=== PATIENT | male | born 1965 | race Caucasian/White ===

== ENCOUNTER 2019-11-21 09:42 | Emergency (ER) | payer BC ==
[2019-11-21] MEDS ORDERED: ONDANSETRON 4 MG (ODT) TAB ONE (10:13)
[2019-11-21] MEDS ORDERED: MORPHINE 4 MG/ML SYR ONE (10:13)
--- NOTE | 2019-11-21 10:39 | RAD REPORT ---
EXAM DESCRIPTION: RAD - Ankle Left 3 View -11/21/2019 10:25 am CLINICAL HISTORY: Left ankle pain FINDINGS: No fracture or dislocation is seen. Mild to moderate osteoarthritis involves the ankle mainly consisting of joint space narrowing and ost eophytes Vascular calcifications
--- NOTE | 2019-11-21 10:43 | RAD REPORT ---
EXAM DESCRIPTION: RAD - Foot Left 3 View - 11/21/2019 10:25 am CLINICAL HISTORY: Left Foot pain FINDINGS: No fracture or dislocation is seen. Large calcaneal spur
--- NOTE | 2019-11-21 11:10 | ER ---
Nurse's Notes [facility] Name: Cristóbal Reeves Age: 54 yrs Sex: Male : 1965 Arrival Date: 11/21/2019 Time: 09:44 Bed 5 Private MD: Ike Baez Diagnosis: Sprain of ankle Presentation: 11/21 09:52 Presenting complaint: Patient states: LEFT ANKLE PAIN AFTER FALL 11/03. Transition of bp care: patient was not received from another setting of care. Onset of symptoms was November 03, 2019. Risk Assessment: Do you want to hurt yourself or someone else? Patient reports no desire to harm self or others. Initial Sepsis Screen: Does the patient meet any 2 criteria? No. Patient's initial sepsis screen is negative. Does the patient have a suspected source of infection? No. Patient's initial sepsis screen is negative. Care prior to arrival: None. 09:52 Method Of Arrival: Wheelchair bp 09:52 Acuity: NELIDA 3 bp Triage Assessment: 09:54 General: Appears in no apparent distress. comfortable, Behavior is calm, cooperative, bp appropriate for age. Pain: Complains of pain in left medial ankle. EENT: No deficits noted. Neuro: No deficits noted. Cardiovascular: No deficits noted. Respiratory: No deficits noted. GI: No deficits noted. : No deficits noted. Derm: No deficits noted. Musculoskeletal: Swelling present in left medial ankle. Historical: - Allergies: 09:54 No Known Allergies; bp - Home Meds: 09:54 lisinopril 20 mg oral tab [Active]; simvastatin 20 mg oral tab [Active]; bp - PMHx: 09:54 High Cholesterol; Hypertension; Diabetes - NIDDM; Gout; bp - Immunization history:: Adult Immunizations up to date. - Social history:: Smoking status: Patient/guardian denies using tobacco. - Ebola Screening: : No symptoms or risks identified at this time. Screenin:54 Abuse screen: Denies threats or abuse. Denies injuries from another. Nutritional bp screening: No deficits noted. Tuberculosis screening: No symptoms or risk factors identified. Fall Risk None identified. Assessment: 09:54 General: SEE TRIAGE NOTE. bp 10:12 Reassessment: XRAY AT B/S. bp 11:19 Reassessment: PT D/C HOME VIA W/C WITH FAMILY, DX WITH ANKLE SPRAIN. bp Vital Signs: 09:54 BP 124 / 68; Pulse 80; Resp 16; Temp 98.2; Pulse Ox 98% ; Weight 104.33 kg; Height 5 bp ft. 11 in. (180.34 cm); 11:19 BP 115 / 49; Pulse 65; Resp 16; Temp 98; Pulse Ox 97% ; bp 09:54 Body Mass Index 32.08 (104.33 kg, 180.34 cm) bp ED Course: 09:44 Patient arrived in ED. as 09:44 Ike Baez MD is Private Physician. as 09:45 Jin Landin, RN is Primary Nurse. bp 09:53 Stanley Milligan PA is [facility] 09:53 Ismael Ballard MD is Attending Physician. jm 09:53 Triage completed. bp 09:54 Arm band placed on. bp 09:54 Patient has correct armband on for positive identification. Bed in low position. Call bp light in reach. Side rails up X2. Adult w/ patient. 10:26 Ankle Left 3 View XRAY In Process Unspecified. EDMS 10:26 Foot Left 3 View XRAY In Process Unspecified. EDMS 11:09 Yao Silva MD is Referral Physician. [facility] 11:19 No provider procedures requiring assistance completed. Patient did not have IV access bp during this emergency room visit. Casper wrap to left medial ankle. Administered Medications: 10:17 Drug: morphine 4 mg Route: IM; Site: right deltoid; sg 10:49 Follow up: Response: No adverse reaction; Pain is decreased sg 10:17 Drug: Zofran 4 mg Route: PO; sg 10:49 Follow up: Response: No adverse reaction sg Outcome: 11:09 Discharge ordered by . jmm 11:19 Discharged to home via wheelchair, with family. bp 11:19 Condition: stable 11:19 Discharge instructions given to patient, Instructed on discharge instructions, follow up and referral plans. medication usage, Demonstrated understanding of instructions, follow-up care, medications, Prescriptions given X 1. 11:21 Patient left the ED. bp Signatures: Dispatcher [employer] EDMS Francois Gatica RN RN sg Stanley Milligan PA PA Kerri Gifford as Jin Landin, RN RN bp
--- NOTE | 2019-11-21 11:11 | EDPHYS ---
Physician Documentation [facility] Name: Cristóbal Reeves Age: 54 yrs Sex: Male : 1965 Arrival Date: 11/21/2019 Time: 09:44 Bed 5 Private MD: Ike Baez ED Physician Ismael Ballard HPI: 11/21 09:57 This 54 yrs old Male presents to ER via Wheelchair with complaints of Ankle jmm Pain. 09:57 The patient presents with an injury, pain. Onset: The symptoms/episode began/occurred jmm acutely, 11/03/2019. Associated signs and symptoms: Pertinent positives: swelling. Modifying factors: The symptoms are alleviated by nothing, the symptoms are aggravated by movement. This is a 54 year old male with a history of hlp, htn, dm, gout, that presents to the ED with complaints of left ankle pain beginning after falling off a ladder on the 9th of this month. Patient initially had bruising after the injury. Patient now complains of throbbing pain to the ankle. Patient admits to recent ETOH use. Denies fever or chills. . Historical: - Allergies: 09:54 No Known Allergies; bp - Home Meds: 09:54 lisinopril 20 mg oral tab [Active]; simvastatin 20 mg oral tab [Active]; bp - PMHx: 09:54 High Cholesterol; Hypertension; Diabetes - NIDDM; Gout; bp - Immunization history:: Adult Immunizations up to date. - Social history:: Smoking status: Patient/guardian denies using tobacco. - Ebola Screening: : No symptoms or risks identified at this time. ROS: 09:57 Constitutional: Negative for fever, chills, and weight loss, Cardiovascular: Negative jmm for chest pain, palpitations, and edema, Respiratory: Negative for shortness of breath, cough, wheezing, and pleuritic chest pain. 09:57 MS/extremity: Positive for injury or acute deformity, pain. 09:57 All other systems are negative. Exam: 09:57 Constitutional: This is a well developed, well nourished patient who is awake, alert, jmm and in no acute distress. Head/Face: atraumatic. Eyes: EOMI, no conjunctival erythema appreciated ENT: Moist Mucus Membranes Neck: Trachea midline, Supple Chest/axilla: Normal chest wall appearance and motion. Cardiovascular: Regular rate and rhythm. No edema appreciated Respiratory: Normal respirations, no respiratory distress appreciated Abdomen/GI: Non distended, soft 09:57 Musculoskeletal/extremity: the left lateral ankle is TTP, full dorsalis pulse, appreciated, compartments are soft, NVI. 09:57 Skin: Appearance: Color: normal in color. 09:57 Neuro: Orientation: is normal, Mentation: is normal, Memory: is normal. 09:57 Psych: Behavior/mood is pleasant, cooperative. Vital Signs: 09:54 BP 124 / 68; Pulse 80; Resp 16; Temp 98.2; Pulse Ox 98% ; Weight 104.33 kg; Height 5 bp ft. 11 in. (180.34 cm); 11:19 BP 115 / 49; Pulse 65; Resp 16; Temp 98; Pulse Ox 97% ; bp 09:54 Body Mass Index 32.08 (104.33 kg, 180.34 cm) bp MDM: 09:57 Patient medically screened. [facility] 11:08 Data reviewed: vital signs, nurses notes. Counseling: I had a detailed discussion with [facility] the patient and/or guardian regarding: the historical points, exam findings, and any diagnostic results supporting the discharge/admit diagnosis, radiology results, the need for outpatient follow up, to return to the emergency department if symptoms worsen or persist or if there are any questions or concerns that arise at home. 11:08 ED course: Pain has decreased in the ED. Symptoms may be due to injury in combination jmm with underlying arthritis. Patient is alert and non toxic in appearance in the ED. Patient advised to follow up with ortho for reevaluation and otherwise given strict return precautions. Patient understood and agrees with the plan of care. . 11/21 10:02 Order name: Ankle Left 3 View XRAY; Complete Time: 10:52 [facility] 11/21 10:02 Order name: Foot Left 3 View XRAY; Complete Time: 10: [facility] 11/21 11:01 Order name: Casper wrap-joint; Complete Time: 11:03 [facility] Administered Medications: 10:17 Drug: morphine 4 mg Route: IM; Site: right deltoid; sg 10:49 Follow up: Response: No adverse reaction; Pain is decreased sg 10:17 Drug: Zofran 4 mg Route: PO; sg 10:49 Follow up: Response: No adverse reaction sg Disposition: 12:03 Co-signature as Attending Physician, Ismael Ballard MD I agree with the assessment and kdr plan of care. Disposition: 11/21/19 11:09 Discharged to Home. Impression: Sprain of ankle. - Condition is Stable. - Discharge Instructions: Ankle Sprain. - Prescriptions for Ultracet 37.5- 325 mg Oral Tablet - take 1 tablet by ORAL route every 6 hours - for up to 5 days; do not exceed 8 tablets per day.; 20 tablet. - Medication Reconciliation Form, Thank You Letter, Antibiotic Education, Prescription Opioid Use form. - Follow up: Yao Silva MD; When: 2 - 3 days; Reason: Recheck today's complaints, Continuance of care, Re-evaluation by your physician. Signatures: Dispatcher [employer] EDMS Francois Gatica, RN RN Ismael Francisco MD MD [facility] Stanley Milligan PA PA [facility] Jin Landin, RN RN bp Corrections: (The following items were deleted from the chart) 11:21 11:09 11/21/2019 11:09 Discharged to Home. Impression: Sprain of ankle. Condition is bp Stable. Forms are Medication Reconciliation Form, Thank You Letter, Antibiotic Education, Prescription Opioid Use. Follow up: Dr. Yao Silva; When: 2 - 3 days; Reason: Recheck today's complaints, Continuance of care, Re-evaluation by your physician. jennifer
[2019-11-21 11:29] VITALS: BP 115/49; TEMP 98; O2SAT 97
== END 2019-11-21 11:21 | disposition home or self-care (01) ==
LOC: ER 09:42
DX: S93.402A Sprain of unspecified ligament of left ankle, initial encounter (principal); W11.XXXA Fall on and from ladder, initial encounter; Y93.9 Activity, unspecified; Y92.9 Unspecified place or not applicable; I10 Essential (primary) hypertension; E11.9 Type 2 diabetes mellitus without complications; E78.00 Pure hypercholesterolemia, unspecified
CPT/HCPCS: 96372; 99284